=== PATIENT | male | born 1955 | race Caucasian/White ===

== ENCOUNTER 2022-02-11 15:36 | Inpatient (IN) ==
[2022-02-11] MEDS ORDERED: ONDANSETRON INJ 2 MG/ML 2 ML VIAL IV STA (16:28)
[2022-02-11] MEDS ORDERED: KETOROLAC TROMETHAMINE 15 MG/ML VIAL IV STA (16:28)
[2022-02-11] MEDS ORDERED: HYDROmorphone INJ 1 MG/ML SYRINGE IV STA (16:28)
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
[2022-02-11 16:58] LABS: Appearance Urine Clear (Clear); Bilirubin Urine Negative (Negative); Blood Urine Negative (Negative); Color Urine Yellow; Glucose Urine UA 2+ (Negative); Ketones Urine Negative (Negative); Leukocyte Esterase Urine Negative (Negative); Nitrite Urine Negative (Negative); Protein Urine Negative (Negative); Specific Gravity Urine 1.013 (1.000-1.030); Urobilinogen Urine Negative (Negative); pH Urine 7.5 (4.5-7.5)
[2022-02-11 16:59] LABS: Basophils # (auto) 0.05 K/uL (0-0.2); Basophils % (auto) 0.4 %; Eosinophils # (auto) 0.03 K/uL (0-0.50); Eosinophils % (auto) 0.2 %; Hematocrit (blood only) 41.6 % (40.1-51.0); Hemoglobin 14.2 g/dl (14.0-18.0); Immature Granulocytes # (auto) 0.11 K/uL (0.00-0.02); Immature Granulocytes % (auto) 0.8 %; Lymphocytes # (auto) 1.91 K/uL (1.2-3.4); Lymphocytes % (auto) 13.6 %; Mean Corpuscular Hemoglobin 31.1 pg (25.0-34.0); Mean Corpuscular Hgb Conc 34.1 g/dL (32.0-36.0); Mean Corpuscular Volume 91.2 fL (80.0-100.0); Mean Platelet Volume 9.1 fL (9.4-12.4); Monocytes % (auto) 5.7 %; Neutrophils # (auto) 11.18 K/uL (1.4-6.5); Neutrophils % (auto) 79.3 %; Platelet Count 617 K/uL (130-400); RDW Coefficient of Variation 13.9 % (11.5-14.5); RDW Standard Deviation 46.7 fL (36.4-46.3); Red Blood Count 4.56 M/uL (4.63-6.08); White Blood Count 14.08 K/ul (4.8-10.8)
[2022-02-11 17:10] LABS: INR 0.9 (0.9-1.1); Partial Thromboplastin Time 27.8 Seconds (21.0-31.0); Prothrombin Time 10.1 Seconds (9.0-12.0)
[2022-02-11 17:25] LABS: Alanine Aminotransferase 49 U/L (7-52); Albumin Globulin Ratio 1.6 (0.9-2); Albumin Level 4.1 gm/dl (3.4-5.0); Alkaline Phosphatase 41 U/L (34-104); Anion Gap 7 (3-11); Aspartate Aminotransferase 21 U/L (13-39); BUN Creatinine Ratio 23.5 (10-20); Bilirubin,Total 0.4 mg/dl (0.2-1.0); Blood Urea Nitrogen 20 mg/dl (6-23); Calcium 8.8 mg/dl (8.5-10.1); Carbon Dioxide 29 mmol/L (21-32); Chloride 99 mmol/L (98-107); Est GFR (African American) 103.8 ml/min; Est GFR (Non-African American) 89.5 ml/min; Globulin 2.6 gm/dl (2.5-4.0); Glucose 215 mg/dl (70-99(Fasting)); Potassium 4.5 mmol/L (3.5-5.1); Sodium 135 mmol/L (136-145); Total Protein 6.7 gm/dl (6.0-8.3)
[2022-02-11] MEDS ORDERED: HYDROmorphone INJ 0.5 MG/0.5 ML SYR IV STA (17:26)
[2022-02-11] MEDS ORDERED: ACETAMINOPHEN 1,000 MG/100 ML VIAL IV PRN (21:06)
[2022-02-11] MEDS ORDERED: METOCLOPRAMIDE HCL INJ 5 MG/ML 2 ML VIAL IV PRN (21:06)
[2022-02-11] MEDS ORDERED: NALOXONE HCL 0.4 MG/1 ML VIAL/CARP IV PRN (21:06)
[2022-02-11] MEDS ORDERED: ACETAMINOPHEN 500 MG TAB PO PRN (21:06)
[2022-02-11] MEDS ORDERED: LORazepam 0.5 MG in SYRINGE 0.25 ML IV PRN (21:06)
[2022-02-11] MEDS ORDERED: oxyCODONE HCL IR 5 MG TAB (IMMEDIATE RELEASE) PO PRN (21:06)
[2022-02-11] MEDS ORDERED: ONDANSETRON 4 MG OD TAB PO PRN (21:06)
[2022-02-11] MEDS ORDERED: PHARMACY GLYCEMIC MGMT CONSULT PRN (21:06)
[2022-02-11] MEDS ORDERED: LORazepam 0.5 MG TAB PO PRN (21:06)
[2022-02-11] MEDS ORDERED: DOCUSATE SODIUM/SENNA 50/8.6MG TAB PO SCH (21:06)
[2022-02-11] MEDS ORDERED: MAGNESIUM HYDROXIDE SUSP 30 ML UDC PO PRN (21:06)
[2022-02-11] MEDS ORDERED: HYDROmorphone INJ 1 MG/ML SYRINGE IV PRN (21:06)
[2022-02-11] MEDS ORDERED: ONDANSETRON INJ 2 MG/ML 2 ML VIAL IV PRN (21:06)
[2022-02-11] MEDS ORDERED: PROMETHAZINE HCL 12.5 MG in SODIUM CHLORIDE 0.9% 50 ML IV PRN (21:06)
[2022-02-11] MEDS: SODIUM CHLORIDE 0.9% 1000ML 1,000 ML IV SCH (21:18)
[2022-02-11] MEDS: HYDROmorphone INJ 0.5 MG/0.5 ML SYR IV PRN (21:20)
[2022-02-11] MEDS: ATORVASTATIN 40 MG TAB PO SCH (22:31)
[2022-02-11] MEDS: GABAPENTIN 300 MG CAP PO SCH (22:32)
[2022-02-12] MEDS: HYDROmorphone INJ 0.5 MG/0.5 ML SYR IV PRN (00:03)
[2022-02-12] MEDS: INSULIN ASPART PER UNIT SC SCH ×6 (00:10→20:54)
[2022-02-12] MEDS ORDERED: ACETAMINOPHEN 1,000 MG/100 ML VIAL IV SCH (02:00)
[2022-02-12] MEDS ORDERED: ALBUTEROL HFA 8 GM INHALER INH PRN (02:13)
[2022-02-12] MEDS ORDERED: LORazepam 0.5 MG in SYRINGE 0.25 ML IV PRN ×2 (02:13→17:41)
[2022-02-12] MEDS: SODIUM CHLORIDE 0.9% 1000ML 1,000 ML IV SCH ×2 (02:21→17:41)
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
[2022-02-12] MEDS ORDERED: LORazepam 1 MG in SYRINGE 0.5 ML IV STA (03:11)
[2022-02-12] MEDS: MELATONIN 3 MG TAB PO PRN ×2 (03:23→23:02)
[2022-02-12] MEDS ORDERED: ceFAZolin 2000MG 2,000 MG/15 ML SYR IV SCH (06:00)
--- NOTE | 2022-02-12 06:09 | Billing Data ---
Date of Service February 12, 2022 Coding Level of Care Code 49526 Inpt Consult Level 3
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
[2022-02-12] MEDS: FLUTICASONE/VILANTEROL 200/25MCG 14 PUFFS/INHALER INH SCH (08:02)
[2022-02-12] MEDS: GABAPENTIN 300 MG CAP PO SCH ×3 (08:06→20:08)
[2022-02-12] MEDS: amLODIPine BESYLATE 5 MG TAB PO SCH (08:07)
[2022-02-12] MEDS ORDERED: LOSARTAN POTASSIUM 50 MG TAB PO SCH (09:00)
--- NOTE | 2022-02-12 11:54 | Communication Note ---
Date of Service: February 12, 2022 Seen and evaluated patient this morning. He was seen by overnight resident for medical management consult. Reviewed consult, only change made is to hold Losartan in anticipation of surgery. Otherwise, no changes made to plan. Will continue to follow after surgery.
--- NOTE | 2022-02-12 12:23 | History & Physical Bridge Note ---
Date of Service February 12, 2022 History & Physical Bridge Note I have examined the patient, reviewed the History & Physical and in the interval since the performance of the History & Physical I have noted the following changes of clinical significance: Patient continues to decline. He is unresponsive to narcotic medications for pain control and with his strength deficit progressing I am recommending emergent decompression and fusion
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
[2022-02-12] MEDS ORDERED: HYDROmorphone INJ 1 MG/ML SYRINGE IV PRN (14:08)
[2022-02-12] MEDS ORDERED: ATROPINE SULFATE 0.1 MG/ML 10ML SYR IV PRN (14:08)
[2022-02-12] MEDS ORDERED: ePHEDrine sulfate 50 MG/ML AMP IV PRN (14:08)
[2022-02-12] MEDS ORDERED: ONDANSETRON INJ 2 MG/ML 2 ML VIAL IV PRN ×2 (14:08→17:41)
--- NOTE | 2022-02-12 14:15 | Pharmacy Report ---
Pharmacy Glycemic Short Note 2 - Date of Service February 12, 2022 - Glycemic Short BSG Results (Last 24 hours): 02/11/22 02/12/22 02/12/22 16:40 00:01 05:54 Glucose 215 H POC Glucose 125 H 112 H 02/12/22 02/12/22 12:04 13:04 Glucose POC Glucose 99 102 H OUTPATIENT ANTIDIABETIC REGIMEN: * metformin 500 mg BID * prednisone taper as an outpatient ASSESSMENT: * Mr Nowak is a 66 y/o M with a PMH of T2DM on oral medication who presents with lumbar radiculopathy. * Patient currently NPO and BSGs are well controlled. * Patient scheduled for surgery today. Post Op plan to be determined based upon steroids given. PLAN FOR INPATIENT GLYCEMIC CONTROL: * Hold outpatient oral diabetes medications * Basal insulin * TBD * Bolus insulin * NovoLog per scale ACHS or Q6hrs while NPO * Goal Range: Low 110 mg/dL - High 140 mg/dL * Correction Factor: 25 mg/dL/unit * Nutritional / Prandial insulin per carb ratio of 1 unit per 8 grams CHO consumed
[2022-02-12] MEDS ORDERED: ceFAZolin 330 MG/ML 1 GM VIAL ONE (14:27)
[2022-02-12] MEDS ORDERED: BUPIVACAINE/EPINEPHRINE 0.25% 1:200,000 30 ML VIAL ONE (14:27)
[2022-02-12] MEDS ORDERED: ONDANSETRON INJ 2 MG/ML 2 ML VIAL ONE ×2 (14:32→14:58)
[2022-02-12] MEDS ORDERED: DEXAMETHASONE SOD INJ 4 MG/ML VIAL ONE (14:32)
[2022-02-12] MEDS ORDERED: PROPOFOL IV EMULSION 10 MG/ML 20 ML VIAL IV ONE (14:32)
[2022-02-12] MEDS ORDERED: NEOSTIGMINE METHYLSULFATE 1 MG/ML 10ML VIAL ONE (14:32)
[2022-02-12] MEDS ORDERED: GLYCOPYRROLATE 0.2 MG/ML VIAL ONE ×2 (14:32→14:58)
[2022-02-12] MEDS ORDERED: HYDROmorphone INJ 2 MG/ML SYR/VIAL ONE (14:33)
[2022-02-12] MEDS ORDERED: MIDAZOLAM HCL 1 MG/ML 2ML VIAL ONE (14:33)
[2022-02-12] MEDS ORDERED: PHENYLEPHRINE 100MCG/ML 5ML SYR ONE (14:59)
[2022-02-12] MEDS ORDERED: LARYING-O-JET KIT (LTA) ONE (14:59)
[2022-02-12] MEDS ORDERED: ePHEDrine sulfate 50 MG/ML AMP ONE (14:59)
[2022-02-12] MEDS ORDERED: ROCURONIUM BROMIDE 10 MG/ML 5 ML VIAL IV ONE (14:59)
[2022-02-12] MEDS ORDERED: LIDOCAINE 2% 20 MG/ML 5 ML SYR IV ONE (14:59)
[2022-02-12] MEDS ORDERED: FLOSEAL HEMOSTATIC MATRIX 10ML TOP ONE (15:04)
--- NOTE | 2022-02-12 16:12 | Electrocardiogram Report ---
Test Reason : Blood Pressure : / mmHG Vent. Rate : 062 BPM Atrial Rate : 062 BPM P-R Int : 188 ms QRS Dur : 104 ms QT Int : 394 ms P-R-T Axes : 043 -39 005 degrees QTc Int : 399 ms Normal sinus rhythm Left axis deviation Minimal voltage criteria for LVH, may be normal variant Abnormal ECG When compared with ECG of 05-MAR-2013 11:11, No significant change was found Confirmed by Gage Garza ([id number]) on 02/12/2022 4:12:11 PM Referred By: REFERRED SELF Confirmed By:Gage Garza
--- NOTE | 2022-02-12 16:25 | Operative Report ---
Post Operative Report Pre & Post Diagnosis Operation Date: 02/12/22 10:20 Pre-Op Diagnosis: (1) Lumbar radiculopathy: Post-Op Diagnosis: (1) Lumbar radiculopathy: I identified the patient and participated in the time-out.: Yes Procedure Operation Date: 02/12/22 10:20 Actual Procedures Impression bilateral medial facetectomies and foraminotomies L2-L3 L3-L4. #2 posterior spinal fusion L2-L3 L3-L4. #3 placement posterior instrumentation L2- L3 L3-L4 per #4 interbody fusion L3-L4. #5 placement of Spira 13 x 26 mm cage L3-L4. #6 placement locally harvested morselized autograft in the posterior gutters. #7 placement of I factor combined with V toss in interbody space and posterior lateral gutters. Surgeon Deo Johnson, Extrusion Die Template Maker Aaliyah Umana Estimated Blood Loss 50 Findings Consistent with Post-Op Diagnosis Specimens None Indications This is a 58-year-old male who presents with marked decline in status with considerable L3 radiculopathy and motor deficit unresponsive to nonoperative care and subsequently here for emergent decompression and fusion Description of Procedure Patient was met with identified informed consent obtained. Patient was then taken to the operative suite underwent intubation placed in the prone position on the Martin table on top of the Bola frame. All bony prominences well- padded eyes inspected to ensure no external pressure placed upon them. This point the lumbar spine was prepped and draped in normal sterile fashion. Sharp dissection with the assistance of Bovie cautery was performed down to and exposing the lamina and transverse processes of L2-L3-L4 bilaterally. From a caudal to cephalad fashion complete laminectomy of L3 and L2 was performed including bilateral medial facetectomies and foraminotomies addressing significant spinal stenosis. I did note massive disc herniation L3-L4 on the right exiting out through the foramen. I performed a complete facetectomy in order to address the disc affecting the exiting root. After complete removal of all the fragments pedicle screws were then placed in L2 L3-4 bilaterally with assistance of fluoroscopy and the properly sized rosanne placed. By way of a transforaminal approach on the right a complete discectomy of L3-L4 was performed endplates curetted to subcortical bleeding bone and a 13 x 26 mm spiral cage filled I factor tapped in position. The rods were then compressed locked into final position bilaterally. The transverse processes of L2-L3-L4 burred to subcortically bone. I factor combined with V toss and locally harvested morselized autograft was placed in the posterior gutters. 15 round [place] drain inserted. The incision was then closed with 1 Vicryl the fascia 2-0 Vicryl subcutaneously and 4 Monocryl for final skin closure. Steri-Strip sterile dressings placed. Patient waken taken PACU stable condition. Please note spinal cord monitoring visualized at the procedure no changes noted. Lastly Aaliyah Umana was present for the entire surgery and while the patient positioning complex portions of the surgery and final skin closure. I attest to the content of the Intraoperative Record and any orders documented therein. Any exceptions are noted below.
[2022-02-12] MEDS: fentaNYL citrate 100 MCG/2 ML VIAL IV PRN ×4 (16:50→17:05)
--- NOTE | 2022-02-12 16:52 | Fluoroscopy Report ---
FL lumbar spine 2-3V CLINICAL HISTORY: L2-L4 decompression and fusion COMPARISON STUDY: None. FLUOROSCOPY TIME: 25 seconds. FINDINGS: 2 fluoroscopic spot images of the lower lumbar spine demonstrate posterior decompression an d fusion from L2 through L4 with pedicle screws and rods. There is an L3-L4 disc spacer. The hardware appears intact. IMPRESSION: Fluoroscopic assistance provided for L2-L4 posterior decompression and fusion. ACT 112: Negative or not required by law. Electronically signed by: Juanito Shafer M.D. 02/12/2022 4:50 PM
--- NOTE | 2022-02-12 17:10 | Anesthesiology Progress Note ---
Date of Service February 12, 2022 Anesthesia Post Procedure Vital Signs Vital Signs: Temp Pulse Pulse Resp BP BP Pulse Ox 02/12/22 17:00 70 12 138/72 96 02/12/22 16:50 73 18 140/80 97 02/12/22 16:40 66 14 132/78 98 02/12/22 16:31 36.2 C L 80 18 129/70 94 02/12/22 12:55 36.7 C 60 18 146/88 H 95 02/12/22 07:36 36.8 C 60 14 162/90 H 98 02/12/22 05:52 36.5 C 58 L 17 147/88 H 94 02/12/22 02:05 36.7 C 67 18 164/83 H 96 02/12/22 00:11 63 18 152/89 H 96 02/11/22 21:13 73 18 155/88 H 94 02/11/22 18:00 74 18 166/99 H 94 O2 Del Method O2 Flow Rate 02/12/22 17:00 Oxymask 3 02/12/22 16:50 Oxymask 4 02/12/22 16:40 Oxymask 6 02/12/22 16:31 Oxymask 10 02/12/22 12:55 Room Air 02/12/22 07:36 Room Air 02/12/22 05:52 Room Air 02/12/22 02:05 Room Air 02/12/22 00:11 Room Air 02/11/22 21:13 Room Air 02/11/22 18:00 Room Air Pain Intensity Back: Pain Intensity: 3 Right Hip: Pain Intensity: 3 Transfer of Care Handoff Completed per policy Notes Mental Status: alert / awake / arousable Patient Amnestic to Procedure: Yes Nausea / Vomiting: adequately controlled Pain: adequately controlled Airway Patency, RR, SpO2: stable & adequate BP & HR: stable & adequate Hydration State: stable & adequate Anesthetic Complications: no major complications apparent and Pt Satisfied with anesthetic care
[2022-02-12] MEDS ORDERED: diphenhydrAMINE Capsule 25 MG CAP PO PRN (17:41)
[2022-02-12] MEDS ORDERED: FAMOTIDINE 20 MG TAB PO PRN (17:41)
[2022-02-12] MEDS ORDERED: ONDANSETRON 4 MG OD TAB PO PRN (17:41)
[2022-02-12] MEDS ORDERED: hydrOXYzine HCl 25 MG TAB PO PRN (17:41)
[2022-02-12] MEDS ORDERED: HYDROmorphone INJ 0.5 MG/0.5 ML SYR IV PRN (17:41)
[2022-02-12] MEDS ORDERED: bisacodyL 10 MG SUPP PR PRN (17:41)
[2022-02-12] MEDS ORDERED: MAGNESIUM HYDROXIDE SUSP 30 ML UDC PO PRN (17:41)
[2022-02-12] MEDS ORDERED: PHARMACY GLYCEMIC MGMT CONSULT PRN (17:41)
[2022-02-12] MEDS ORDERED: ALUMINUM/MAGNESIUM SUSP 30 ML UDC PO PRN (17:41)
[2022-02-12] MEDS ORDERED: ACETAMINOPHEN 500 MG TAB PO PRN (17:41)
[2022-02-12] MEDS ORDERED: PROMETHAZINE HCL 12.5 MG in SODIUM CHLORIDE 0.9% 50 ML IV PRN (17:41)
[2022-02-12] MEDS ORDERED: NALOXONE HCL 0.4 MG/1 ML VIAL/CARP IV PRN (17:41)
[2022-02-12] MEDS ORDERED: METOCLOPRAMIDE HCL INJ 5 MG/ML 2 ML VIAL IV PRN (17:41)
[2022-02-12] MEDS ORDERED: SOD PHOSPHATE/SOD BIPHOSPHATE ENEMA 132 ML BTL PR PRN (17:41)
[2022-02-12] MEDS: HYDROmorphone INJ 1 MG/ML SYRINGE IV PRN (18:14)
[2022-02-12] MEDS ORDERED: Nursing to Pharmacy Communication SCH (18:15)
[2022-02-12] MEDS ORDERED: LANTUS PER UNIT CHARGE SQ ONE (19:15)
[2022-02-12] MEDS: DOCUSATE SODIUM/SENNA 50/8.6MG TAB PO SCH (20:08)
[2022-02-12] MEDS: ATORVASTATIN 40 MG TAB PO SCH (20:08)
[2022-02-12] MEDS: LORazepam 0.5 MG TAB PO PRN (20:25)
[2022-02-12] MEDS: ceFAZolin 2000MG 2,000 MG/15 ML SYR IV SCH (21:32)
[2022-02-13] MEDS: INSULIN ASPART PER UNIT SC SCH ×6 (00:01→21:10)
[2022-02-13] MEDS: HYDROmorphone INJ 1 MG/ML SYRINGE IV PRN ×5 (01:47→20:22)
[2022-02-13] MEDS: SODIUM CHLORIDE 0.9% 1000ML 1,000 ML IV SCH (03:32)
[2022-02-13] MEDS: POLYETHYLENE (MIRALAX) 17 GM PACK PO SCH ×5 (05:57→23:29)
[2022-02-13] MEDS: ceFAZolin 2000MG 2,000 MG/15 ML SYR IV SCH (06:01)
[2022-02-13] MEDS ORDERED: GLUCOSE 10 TAB/TUBE PO PRN (07:15)
[2022-02-13] MEDS ORDERED: DEXTROSE 50% 50 ML SYRINGE IV PRN (07:15)
[2022-02-13] MEDS ORDERED: CARBOHYDRATES FOR HYPOGLYCEMIA PO PRN (07:15)
[2022-02-13] MEDS ORDERED: GLUCAGON FOR INJ 1 MG VIAL IM PRN (07:15)
[2022-02-13] MEDS ORDERED: GLUCOSE 40% GEL 15 GM TUBE PO PRN (07:15)
[2022-02-13 07:58] LABS: Hematocrit (blood only) 38.4 % (40.1-51.0); Hemoglobin 13.3 g/dl (14.0-18.0); Mean Corpuscular Hemoglobin 31.1 pg (25.0-34.0); Mean Corpuscular Hgb Conc 34.6 g/dL (32.0-36.0); Mean Corpuscular Volume 89.9 fL (80.0-100.0); Mean Platelet Volume 9.2 fL (9.4-12.4); Platelet Count 513 K/uL (130-400); RDW Coefficient of Variation 13.7 % (11.5-14.5); RDW Standard Deviation 44.9 fL (36.4-46.3); Red Blood Count 4.27 M/uL (4.63-6.08); White Blood Count 27.11 K/ul (4.8-10.8)
[2022-02-13 08:16] LABS: BUN Creatinine Ratio 20.7 (10-20); Calcium 8.8 mg/dl (8.5-10.1); Creatinine Clr Calc Pharmacy 68.2 ml/min; Est GFR (African American) 102.8 ml/min; Est GFR (Non-African American) 88.7 ml/min; Potassium 4.2 mmol/L (3.5-5.1)
[2022-02-13 08:19] LABS: Basophils # (auto) 0.03 K/uL (0-0.2); Basophils % (auto) 0.1 %; Immature Granulocytes # (auto) 0.13 K/uL (0.00-0.02); Immature Granulocytes % (auto) 0.5 %; Lymphocytes # (auto) 2.25 K/uL (1.2-3.4); Lymphocytes % (auto) 8.3 %; Monocytes # (auto) 1.92 K/uL (0.24-0.82); Monocytes % (auto) 7.1 %; Neutrophils # (auto) 22.78 K/uL (1.4-6.5)
[2022-02-13 08:20] LABS: Estimated Average Glucose 197 mg/dl; Hemoglobin A1C 8.5 % (4.5-5.6)
[2022-02-13] MEDS: LANTUS PER UNIT CHARGE SQ SCH (09:12)
--- NOTE | 2022-02-13 09:12 | Hospitalist Progress Note ---
Date of Service February 13, 2022 Assessment & Plan (1) Lumbar radiculopathy: Plan: 66yo male with a history of HTN, HLD, DM2, and asplenia presents with a five- week history of low back pain and radicular leg pain. Patient was seen by [facility] a few days ago, and surgery was recommended. Medicine was consulted for perioperative medical management. Lumbar radiculopathy, spinal stenosis - s/p lumbar decompression 02/12 - Pain management: home gabapentin scheduled, 2nd line - oxycodone, 3rd line - dilaudid Of note, patient dilaudid this earlier without adverse effect despite it being listed as an allergy - Suspect acetaminophen not true allergy but reacted d/t it being given concurrently with hydrocodone - Antiemetic regimen: 1st line - zofran; 2nd line - promethazine, 3rd line - metoclopramide - PT/OT eval - Incentive spirometer use q1h wa for atelectasis/pna prevention - d/c planning (2) Lumbar spinal stenosis: Plan: As above (3) Controlled diabetes mellitus type II without complication: Plan: - BSG ac and hs - SSI w/ hypoglycemic protocol in place - hold home regimen (although may resume upon discharge) (4) Benign essential hypertension: Plan: - Takes Losartan and Amlodipine - Losartan held perioperatively, can resume pod #2 - Continue Amlodipine - BP acceptable (5) Mild intermittent asthma in adult without complication: Plan: - Stable (6) Hypercholesterolemia: Plan: - continue atorvastatin Plan Patient is medically and hemodynamically stable post op day #1. No additional recommendations at this time. Believe his leukocytosis is steroid driven. Encourage ambulation. Instructed to take OxyIR prior to working with PT. Thank you for letting us participate in the care of your patient, will sign off but co ntpreetiue to perform daily chart checks while pt remains in house and follow peripherally. Plan to be d/w Dr. Arvizu. Admission and Anticipated Discharge Date Admission Date: February 11, 2022 Subjective Patient seen on daily rounds this morning. Resting comfortably in bedside chair, reports some incisional soreness. No cp or dyspnea. Tolerating diet. Had dasilva removed this AM. No BM since surgery but passing flatus. No numbness/tingling in LE or groin. No leg pain. Review of Systems Review of Systems: All systems reviewed and are unremarkable except as noted in HPI and below. +back soreness from incision Denies fever, chills, fatigue, headache, nasal congestion, sore throat, cough, chest pain, shortness of breath, palpitations, orthopnea, PND, abdominal pain, n/v/d, constipation, dysuria, hematuria, frequency, back pain, joint pain or swelling, easy bruising or bleeding, skin lesions or rashes. Physical Exam Physical Exam: GENERAL: 66 yo Well-developed, well-nourished WM. NAD. LUNGS: Clear to auscultation bilaterally. No W/R/R. CARDIOVASCULAR: Regular rate and rhythm. No M/G/R. No JVD. ABDOMEN: Soft, non-tender and non-distended. BS normoactive x 4 quad. EXTREMITIES: No edema. Non-tender. Peripheral pulses +2/4. NEUROLOGIC: A&O x3. Nonfocal PSYCHIATRIC: Cooperative. Appropriate mood and affect. SKIN: Warm, dry, intact. No rashes or lesions. Lower back incision dressed. Dressing dry. Results & Data Results & Data ([facility]) Vital Signs (Past 12 Hours) Vital Signs Temp Pulse Resp BP Pulse Ox O2 Del Method 02/13/22 07:21 36.8 C 89 16 144/93 H 95 Room Air 02/13/22 03:22 36.6 C 75 18 146/88 H 95 Room Air 02/13/22 00:08 36.8 C 76 18 139/82 96 Room Air Laboratory Results 02/13/22 07:39 02/13/22 07:39 PG Care Time/CCT Total # of Minutes Spent Total Time Spent with Patient: Total time spent is greater than 50% in coordination of care (as documented) at patient's floor/unit and/or counseling patient: Coding Level of Care Code 36116 Subseq Hosp Care Lvl 2 Diagnoses Lumbar radiculopathy M54.16 Lumbar spinal stenosis M48.061 Controlled diabetes mellitus type II without complication E11.9 Benign essential hypertension I10 Mild intermittent asthma in adult without complication J45.20 Hypercholesterolemia E78.00
--- NOTE | 2022-02-13 09:13 | Orthopedic Progress Note ---
Date of Service February 13, 2022 Assessment & Plan (1) Lumbar radiculopathy: Plan: At this time we will continue physical therapy monitor his SPRING output hopefully discharge home next day or so. Admission and Anticipated Discharge Date Admission Date: February 11, 2022 Subjective Patient's back pain is controlled leg symptoms markedly improved Physical Exam Physical Exam: On exam patient is in a chair at the bedside. Is good strength testing. Results & Data ([facility]) Vital Signs (Past 12 Hours) Vital Signs Temp Pulse Resp BP Pulse Ox O2 Del Method 02/13/22 07:21 36.8 C 89 16 144/93 H 95 Room Air 02/13/22 03:22 36.6 C 75 18 146/88 H 95 Room Air 02/13/22 00:08 36.8 C 76 18 139/82 96 Room Air
[2022-02-13] MEDS: dexAMETHasone 6 MG in SYRINGE 0 ML IV SCH (09:15)
[2022-02-13] MEDS: FLUTICASONE/VILANTEROL 200/25MCG 14 PUFFS/INHALER INH SCH (09:15)
[2022-02-13] MEDS: GABAPENTIN 300 MG CAP PO SCH ×3 (09:16→20:26)
[2022-02-13] MEDS: amLODIPine BESYLATE 5 MG TAB PO SCH (09:17)
--- NOTE | 2022-02-13 10:10 | Pharmacy Report ---
Pharmacy Glycemic Short Note 2 - Date of Service February 13, 2022 - Glycemic Short BSG Results (Last 24 hours): 02/12/22 02/12/22 02/12/22 12:04 13:04 16:34 Glucose POC Glucose 99 102 H 125 H 02/12/22 02/12/22 02/12/22 18:05 20:36 23:55 Glucose POC Glucose 184 H 258 H 148 H 02/13/22 02/13/22 02/13/22 04:08 07:39 08:06 Glucose 165 H POC Glucose 125 H 182 H OUTPATIENT ANTIDIABETIC REGIMEN: * Metformin 500 mg PO BID * HbA1c = 8.5% (02/13/22) ASSESSMENT: 02/13: * Gordy received 33 units of insulin postoperatively yesterday (20 units basal + 13 units bolus). BSGs were acceptable: [id number] mg/dL. * Fasting BSG above goal at 182 mg/dL this AM. This is likely steroid driven given IV dexamethasone received intraoperatively yesterday. Patient is ordered Dexamethasone 6 mg IV daily x 3 days starting this morning. Will start basal at 0.2 units/kg to cover steroids. * No changes to Novolog. 02/12: * Mr Nowak is a 66 y/o M with a PMH of T2DM on oral medication who presents with lumbar radiculopathy. * Patient currently NPO and BSGs are well controlled. * Patient scheduled for surgery today. Post Op plan to be determined based upon steroids given. PLAN FOR INPATIENT GLYCEMIC CONTROL: * Hold outpatient oral diabetes medications * Basal insulin * Lantus 15 units SC daily x 3 days (hold if dexamethasone held/discontinued) * Bolus insulin * NovoLog per scale ACHS or Q6hrs while NPO * Goal Range: Low 110 mg/dL - High 140 mg/dL * Correction Factor: 25 mg/dL/unit * Nutritional / Prandial insulin per carb ratio of 1 unit per 8 grams CHO consumed
[2022-02-13] MEDS: oxyCODONE HCL IR 5 MG TAB (IMMEDIATE RELEASE) PO PRN ×2 (12:35→22:53)
[2022-02-13] MEDS: ATORVASTATIN 40 MG TAB PO SCH (20:25)
[2022-02-13] MEDS: DOCUSATE SODIUM/SENNA 50/8.6MG TAB PO SCH (20:26)
[2022-02-13] MEDS: MELATONIN 3 MG TAB PO PRN (22:53)
[2022-02-13] MEDS: LORazepam 0.5 MG TAB PO PRN (23:14)
[2022-02-14] MEDS: oxyCODONE HCL IR 5 MG TAB (IMMEDIATE RELEASE) PO PRN ×3 (03:33→22:32)
[2022-02-14] MEDS: POLYETHYLENE (MIRALAX) 17 GM PACK PO SCH ×3 (05:24→18:13)
[2022-02-14] MEDS: INSULIN ASPART PER UNIT SC SCH ×4 (08:23→21:25)
[2022-02-14] MEDS: LANTUS PER UNIT CHARGE SQ SCH (08:24)
[2022-02-14] MEDS: dexAMETHasone 6 MG in SYRINGE 0 ML IV SCH (08:29)
--- NOTE | 2022-02-14 08:29 | Orthopedic Progress Note ---
Date of Service February 14, 2022 Assessment & Plan (1) Lumbar radiculopathy: Plan: Patient is postoperative day 2 lumbar decompression instrumented fusion. We will add some steroids today to help improve his pain. Continue with aggressive bowel regimen. DVT prophylaxis is in the form of teds and SCDs. Hopefully discharge home tomorrow. Admission and Anticipated Discharge Date Admission Date: February 11, 2022 Idalia Mullins is postoperative day 2 lumbar decompression and fusion. He has had a rough night with lower back pain and right knee pain. He is passing flatus. SPRING drain output last shift was 30 cc. Yesterday in physical therapy ambling roughly 40 feet. Review of Systems Review of Systems: All systems reviewed & are unremarkable except as noted in HPI & below Physical Exam Physical Exam: Patient is lying in bed in no acute distress Alert and oriented x3 Strength is intact bilateral lower extremities calves are soft and nontender bilaterally Results & Data ([facility]) Vital Signs (Past 12 Hours) Vital Signs Temp Pulse Resp BP Pulse Ox O2 Del Method 02/14/22 07:32 36.7 C 74 18 127/81 92 Room Air 02/13/22 23:28 36.6 C 74 18 136/82 99 Room Air
[2022-02-14] MEDS: amLODIPine BESYLATE 5 MG TAB PO SCH (08:30)
[2022-02-14] MEDS: FLUTICASONE/VILANTEROL 200/25MCG 14 PUFFS/INHALER INH SCH (08:30)
[2022-02-14] MEDS: GABAPENTIN 300 MG CAP PO SCH ×3 (08:30→20:19)
[2022-02-14] MEDS: LOSARTAN POTASSIUM 50 MG TAB PO SCH (08:31)
[2022-02-14] MEDS: HYDROmorphone INJ 1 MG/ML SYRINGE IV PRN ×2 (09:15→13:18)
[2022-02-14 11:39] LABS: Hematocrit (blood only) 36.2 % (40.1-51.0); Hemoglobin 12.2 g/dl (14.0-18.0); Mean Corpuscular Hemoglobin 30.9 pg (25.0-34.0); Mean Corpuscular Hgb Conc 33.7 g/dL (32.0-36.0); Mean Corpuscular Volume 91.6 fL (80.0-100.0); Mean Platelet Volume 9.4 fL (9.4-12.4); Platelet Count 441 K/uL (130-400); RDW Coefficient of Variation 13.9 % (11.5-14.5); RDW Standard Deviation 46.8 fL (36.4-46.3); Red Blood Count 3.95 M/uL (4.63-6.08); White Blood Count 26.29 K/ul (4.8-10.8)
[2022-02-14 12:28] LABS: BUN Creatinine Ratio 23.2 (10-20); Calcium 8.8 mg/dl (8.5-10.1); Creatinine Clr Calc Pharmacy 62.5 ml/min; Est GFR (African American) 94.9 ml/min; Est GFR (Non-African American) 81.9 ml/min; Potassium 4.3 mmol/L (3.5-5.1)
[2022-02-14] MEDS: DOCUSATE SODIUM/SENNA 50/8.6MG TAB PO SCH (20:19)
[2022-02-14] MEDS: ATORVASTATIN 40 MG TAB PO SCH (20:19)
[2022-02-14] MEDS: LORazepam 0.5 MG TAB PO PRN (21:24)
[2022-02-14] MEDS: MELATONIN 3 MG TAB PO PRN (21:24)
[2022-02-15] MEDS: INSULIN ASPART PER UNIT SC SCH ×4 (08:31→21:08)
[2022-02-15] MEDS: LANTUS PER UNIT CHARGE SQ SCH (08:32)
[2022-02-15] MEDS ORDERED: NovoLIN-N (NPH) PER UNIT CHARGE SQ ONE (09:00)
[2022-02-15] MEDS: dexAMETHasone 6 MG in SYRINGE 0 ML IV SCH ×2 (09:17→16:26)
[2022-02-15] MEDS: FLUTICASONE/VILANTEROL 200/25MCG 14 PUFFS/INHALER INH SCH (09:17)
[2022-02-15] MEDS: GABAPENTIN 300 MG CAP PO SCH ×4 (09:18→21:04)
[2022-02-15] MEDS: amLODIPine BESYLATE 5 MG TAB PO SCH (09:18)
[2022-02-15] MEDS: LOSARTAN POTASSIUM 50 MG TAB PO SCH (09:18)
[2022-02-15] MEDS: HYDROmorphone INJ 1 MG/ML SYRINGE IV PRN (09:20)
[2022-02-15 09:51] LABS: Basophils # (auto) 0.05 K/uL (0-0.2); Basophils % (auto) 0.2 %; Eosinophils # (auto) 0.01 K/uL (0-0.50); Hematocrit (blood only) 36.4 % (40.1-51.0); Hemoglobin 12.4 g/dl (14.0-18.0); Immature Granulocytes # (auto) 0.14 K/uL (0.00-0.02); Immature Granulocytes % (auto) 0.6 %; Lymphocytes # (auto) 4.52 K/uL (1.2-3.4); Lymphocytes % (auto) 19.6 %; Mean Corpuscular Hemoglobin 31.2 pg (25.0-34.0); Mean Corpuscular Hgb Conc 34.1 g/dL (32.0-36.0); Mean Corpuscular Volume 91.5 fL (80.0-100.0); Mean Platelet Volume 9.7 fL (9.4-12.4); Monocytes % (auto) 4.8 %; Neutrophils # (auto) 17.19 K/uL (1.4-6.5); Neutrophils % (auto) 74.8 %; Platelet Count 428 K/uL (130-400); RDW Coefficient of Variation 14.1 % (11.5-14.5); RDW Standard Deviation 47.3 fL (36.4-46.3); Red Blood Count 3.98 M/uL (4.63-6.08); White Blood Count 23.01 K/ul (4.8-10.8)
--- NOTE | 2022-02-15 10:11 | Orthopedic Progress Note ---
Date of Service February 15, 2022 Assessment & Plan (1) Lumbar radiculopathy: Plan: Dr. Johnson has also evaluated patient. We will add Neurontin, change Decadron to q8hr and get lumbar xrays to evaluate hardware. COntinue bowel regimen. DVT prophylaxis is in the form of TEDS/SCDs, Admission and Anticipated Discharge Date Admission Date: February 11, 2022 Subjective Pt is POD 3 s/p lumbar decompression /fusion L2-4. He is having significant back spasms and RLE pain to the knee. SPRING output is30 cc. Yesterday in physical therapy he was able to ambulate 45'. Review of Systems Review of Systems: All systems reviewed & are unremarkable except as noted in HPI & below Physical Exam Physical Exam: seen in the hallway with [employer]. lumbar dressing C/D/I very uncomfortable strength intact b/l LE Results & Data ([facility]) Vital Signs (Past 12 Hours) Vital Signs Temp Pulse Resp BP Pulse Ox O2 Del Method 02/15/22 08:21 36.3 C L 73 18 119/72 96 Room Air 02/14/22 22:31 37.1 C 86 18 111/72 97 Room Air
[2022-02-15 10:15] LABS: BUN Creatinine Ratio 22.6 (10-20); Calcium 8.7 mg/dl (8.5-10.1); Creatinine Clr Calc Pharmacy 63.8 ml/min; Est GFR (African American) 97.4 ml/min; Est GFR (Non-African American) 84.1 ml/min; Potassium 3.9 mmol/L (3.5-5.1)
--- NOTE | 2022-02-15 12:34 | Hospitalist Progress Note ---
Date of Service February 15, 2022 Assessment & Plan (1) Lumbar radiculopathy: Plan: Attending: Dr. Arvizu: 66yo male with a history of HTN, HLD, DM2, and asplenia presents with a five- week history of low back pain and radicular leg pain. Patient was seen by [facility] a few days ago, and surgery was recommended. Medicine was consulted for perioperative medical management. Lumbar radiculopathy, spinal stenosis - s/p lumbar decompression 02/12 - Pain management: home gabapentin scheduled, 2nd line - oxycodone, 3rd line - dilaudid Of note, patient dilaudid this earlier without adverse effect despite it being listed as an allergy - Suspect acetaminophen not true allergy but reacted d/t it being given concurrently with hydrocodone - Antiemetic regimen: 1st line - zofran; 2nd line - promethazine, 3rd line - metoclopramide - PT/OT eval orders placed. Seen by PT and continued PT recommended. Will see how he progresses and await OT eval - Incentive spirometer use q1h while awake for atelectasis/pna prevention - d/c planning (2) Lumbar spinal stenosis: Plan: As above (3) Controlled diabetes mellitus type II without complication: Plan: - BSG ac and hs - SSI w/ hypoglycemic protocol in place - hold home regimen (although may resume upon discharge) (4) Benign essential hypertension: Plan: - Takes Losartan and Amlodipine - Losartan held perioperatively, can resume at this time - Continue Amlodipine - Continue vitals per protocol (5) Mild intermittent asthma in adult without complication: Plan: - Stable - Continue Albuterol HFA inhaler (JULIO CÉSAR) - Continue scheduled symbicort (LABA/ICS) -Patient with no history of tobacco abuse. He has not had any pulmonary function testing either. (6) Hypercholesterolemia: Plan: - continue atorvastatin -Outpatient management Plan Patient is medically stable aside from his right leg pain. This is being addressed by orthopedics. There was concern for drop in sodium. However sodium improved from 132-135 today. Patient also had a drop in hemoglobin of 14.2 down to 12.2 since admission. His hemoglobin has recovered. Patient does have elevated white blood cell count but is on steroids for pain. Thank you for including us in the care of this patient. The medicine service will sign off at this time. Please feel free to reconsult or call with any specific questions. Admission and Anticipated Discharge Date Admission Date: February 11, 2022 Subjective Attending: Dr. Arvizu Patient seen and examined in room 307. He is having significant pain in his right leg. It is hypersensitive and he is having trouble moving about on the bed. He has no asymetrical edema and he states that both legs and feet are euthermic. He denies chest pain or tightness. No n/v/d. Last BM was yesterday. He did ask for Miralax and ordered prune juice for lunch. No fever or chills. No other acute complaints other than his right lower extremity pain. Review of Systems Review of Systems: A total of 10 systems was reviewed and is negative other than as listed in the HPI Physical Exam Constitutional: No acute distress. Pleasant Eyes: Pupils equal and round Neck: No appreciation of stridor or carotid bruits Respiratory: normal respiratory effort; no respiratory distress Auscultation: lungs clear to auscultation bilaterally and + diminished lung sounds Cardiovascular: Rate/Rhythm: regular rate and regular rhythm Musculoskeletal: Head/Neck/Chest: + abnormal palpation of chest wall Neurologic: A&OX3. Results & Data Results & Data ([facility]) Vital Signs (Past 12 Hours) Vital Signs Temp Pulse Resp BP Pulse Ox O2 Del Method 02/15/22 08:21 36.3 C L 73 18 119/72 96 Room Air Critical Care Results & Data Vital Signs (Past 12 Hours) Vital Signs Temp Pulse Resp BP Pulse Ox O2 Del Method 02/15/22 08:21 36.3 C L 73 18 119/72 96 Room Air Lab & Micro Results (Past 24 Hours) RBC 3.98 M/uL (4.63-6.08) L 02/15/22 WBC 23.01 K/ul (4.8-10.8) H 02/15/22 Hgb 12.4 g/dl (14.0-18.0) L 02/15/22 Hct 36.4 % (40.1-51.0) L 02/15/22 MCV 91.5 fL (80.0-100.0) 02/15/22 MCH 31.2 pg (25.0-34.0) 02/15/22 MCHC 34.1 g/dL (32.0-36.0) 02/15/22 RDW Standard Deviation 47.3 fL (36.4-46.3) H 02/15/22 RDW Coefficient of Variation 14.1 % (11.5-14.5) 02/15/22 Plt Count 428 K/uL (130-400) H 02/15/22 MPV 9.7 fL (9.4-12.4) 02/15/22 Neutrophils (%) (Auto) 74.8 % 02/15/22 Lymphocytes (%) (Auto) 19.6 % 02/15/22 Monocytes # (Auto) 1.10 K/uL (0.24-0.82) H 02/15/22 Eosinophils # (Auto) 0.01 K/uL (0-0.50) 02/15/22 Immature Granulocyte % (Auto) 0.6 % 02/15/22 Neutrophils # (Auto) 17.19 K/uL (1.4-6.5) H 02/15/22 Lymphocytes # (Auto) 4.52 K/uL (1.2-3.4) H 02/15/22 Monocytes # (Auto) 1.10 K/uL (0.24-0.82) H 02/15/22 Eosinophils # (Auto) 0.01 K/uL (0-0.50) 02/15/22 Basophils # (Auto) 0.05 K/uL (0-0.2) 02/15/22 Immature Granulocyte # (Auto) 0.14 K/uL (0.00-0.02) H 02/15 Na 135 mmol/L (136-145) L 02/15/22 K 3.9 mmol/L (3.5-5.1) 02/15/22 Cl 100 mmol/L (98-107) 02/15/22 CO2 26 mmol/L (21-32) 02/15/22 Anion Gap 9 (3-11) 02/15/22 BUN 21 mg/dl (6-23) 02/15/22 Creatinine 0.93 mg/dl (0.6-1.4) 02/15/22 Estimated GFR ( Amer) 97.4 ml/min 02/15/22 Estimated GFR (Non-Af Amer) 84.1 ml/min 02/15/22 BUN/Creatinine Ratio 22.6 (10-20) H 02/15/22 Glu 213 mg/dl (70-99(Fasting)) H 02/15/22 Ca 8.7 mg/dl (8.5-10.1) 02/15/22 Calcium Level 8.7 mg/dl (8.5-10.1) 02/15/22 09:17 I & O Totals 24 Hours 02/14/22 02/15/22 02/16/22 06:59 06:59 06:59 Intake Total 475 / 475 490 / 490 Output Total 915 / 915 1456 / 1456 Balance -440 / -440 -966 / -966 Cumulative 02/11/22 15:36 thru 02/15/22 06:43 Intake Total 6368.75 Output Total 7651 Balance -1282.25 RT Ventilator Mngmt (Last Documented) Ventilator Ordered Settings Respiratory Rate 18 02/15/22 08:21 Ventilator - PT Measurements Respiratory Rate 18 PG Care Time/CCT Total # of Minutes Spent Total Time Spent with Patient: Total time spent is greater than 50% in coordination of care (as documented) at patient's floor/unit and/or counseling patient:20 Coding Level of Care Code 81228 Subseq Hosp Care Lvl 2 Diagnoses Lumbar radiculopathy M54.16 Lumbar spinal stenosis M48.061 Controlled diabetes mellitus type II without complication E11.9 Benign essential hypertension I10 Mild intermittent asthma in adult without complication J45.20 Hypercholesterolemia E78.00
[2022-02-15] MEDS: oxyCODONE HCL IR 5 MG TAB (IMMEDIATE RELEASE) PO PRN ×2 (12:39→18:06)
--- NOTE | 2022-02-15 13:23 | XRay Report ---
XR lumbar spine 2-3V CLINICAL HISTORY: increase right leg pain s/p lumbar fusion COMPARISON STUDY: Lumbar spine fluoroscopic images February 12, 2022. FINDINGS: Note is made of an L3-L4 discectomy with interbody spacer placement. Posterior decompressio n with L2-L4 bilateral pedicle screw fusion is noted. Surgical drain is in place. Hardware is intact. No fracture is identified. Lateral bone graft material. Bowel gas pattern is normal. IMPRESSION: Expected findings following L3-L4 discectomy at L2-L4 posterior decompression and bilate ral pedicle screw fusion. ACT 112: Negative or not required by law. Electronically signed by: Joss Nicholson M.D. 02/15/2022 1:21 PM
--- NOTE | 2022-02-15 13:51 | Pharmacy Report ---
Pharmacy Glycemic Short Note 2 - Date of Service February 15, 2022 - Glycemic Short BSG Results (Last 24 hours): 02/14/22 02/14/22 02/15/22 16:51 21:10 08: Glucose POC Glucose 270 H 170 H 139 H 02/15/22 02/15/22 09:17 11:55 Glucose 213 H POC Glucose 150 H OUTPATIENT ANTIDIABETIC REGIMEN: * Metformin 500 mg PO BID * HbA1c = 8.5% (02/13/22) ASSESSMENT: 02/15: * Patient received total 48 units of insulin yesterday; 15 units basal + 33 units bolus. * BSGs yesterday were [phone] mg/dl. Patient received Dexamethasone 6 mg IV in the morning yesterday which is likely what caused the high BSGs at lunch and dinner in spite of him getting 15 units of basal in the morning. * Fasting BSG was 103 mg/dl yesterday and 139 mg/dl today. Continued with basal Lantus 15 units QAM. * Added NPH insulin 0.2 units/kg with the IV Dex 6 mg today and tightened Novolog parameters further. * IV Dex 6 mg dosing frequency increased to q8h today. Therefore, I added NPH 0.2 units/kg at 1600 (with the Dex administration time) also to prevent further steroid induced hyperglycemia. 02/13: * Gordy received 33 units of insulin postoperatively yesterday (20 units basal + 13 units bolus). BSGs were acceptable: [phone] mg/dL. * Fasting BSG above goal at 182 mg/dL this AM. This is likely steroid driven given IV dexamethasone received intraoperatively yesterday. Patient is ordered Dexamethasone 6 mg IV daily x 3 days starting this morning. Will start basal at 0.2 units/kg to cover steroids. * No changes to Novolog. 02/12: * Mr Nowak is a 66 y/o M with a PMH of T2DM on oral medication who presents with lumbar radiculopathy. * Patient currently NPO and BSGs are well controlled. * Patient scheduled for surgery today. Post Op plan to be determined based upon steroids given. PLAN FOR INPATIENT GLYCEMIC CONTROL: * Hold outpatient oral diabetes medications * Basal insulin: NPH added * Lantus 15 units SC daily * NPH 12 units (0.2 units/kg) SQ BID at 0800 and 1600 to be given with IV Dex 6 mg * Bolus insulin: tightened CF and CR and added 00,04 checks * NovoLog per scale ACHS or Q6hrs while NPO * Goal Range: Low 110 mg/dL - High 140 mg/dL * Correction Factor: 15 mg/dL/unit * Nutritional / Prandial insulin per carb ratio of 1 unit per 5 grams CHO consumed
[2022-02-15] MEDS: INSULIN HUMAN NPH SC SCH (16:30)
[2022-02-15] MEDS: DOCUSATE SODIUM/SENNA 50/8.6MG TAB PO SCH (21:04)
[2022-02-15] MEDS: ATORVASTATIN 40 MG TAB PO SCH (21:04)
[2022-02-15] MEDS: LORazepam 0.5 MG TAB PO PRN (21:07)
[2022-02-15] MEDS: MELATONIN 3 MG TAB PO PRN (21:07)
[2022-02-16] MEDS: dexAMETHasone 6 MG in SYRINGE 0 ML IV SCH ×4 (00:19→23:43)
[2022-02-16] MEDS: INSULIN ASPART PER UNIT SC SCH ×6 (00:27→21:29)
[2022-02-16] MEDS: GABAPENTIN 300 MG CAP PO SCH ×4 (00:45→19:47)
[2022-02-16] MEDS: LOSARTAN POTASSIUM 50 MG TAB PO SCH (07:39)
[2022-02-16] MEDS: FLUTICASONE/VILANTEROL 200/25MCG 14 PUFFS/INHALER INH SCH (07:39)
[2022-02-16] MEDS: amLODIPine BESYLATE 5 MG TAB PO SCH (07:40)
[2022-02-16] MEDS: INSULIN HUMAN NPH SC SCH ×2 (08:38→17:44)
--- NOTE | 2022-02-16 08:56 | Pharmacy Report ---
Pharmacy Glycemic Short Note 2 - Date of Service February 16, 2022 - Glycemic Short BSG Results (Last 24 hours): 02/15/22 02/15/22 02/15/22 09:17 11:55 16:43 Glucose 213 H POC Glucose 150 H 221 H 02/15/22 02/16/22 02/16/22 20:38 00:09 04:15 Glucose POC Glucose 195 H 121 H 193 H 02/16/22 08:10 Glucose POC Glucose 155 H OUTPATIENT ANTIDIABETIC REGIMEN: * Metformin 500 mg PO BID * HbA1c = 8.5% (02/13/22) ASSESSMENT: 02/16: * Gordy received 83 units of insulin yesterday (39 units basal + 44 units bolus). BSGs were: [phone] mg/dL. * Overnight check was 193 mg/dL this AM. Fasting BSG this AM was 155 mg/dL. No change to NPH dose today. Will increase Lantus by 30% as fasting BSG continues to increase. * Patient continues on Dexamethasone 6 mg IV every 8 hours today. Okay with NPH dosing for now but would prefer to utilize either Lantus or NPH rather than both. * No changes to Novolog today. 02/15: * Patient received total 48 units of insulin yesterday; 15 units basal + 33 units bolus. * BSGs yesterday were 140-302-134-170 mg/dl. Patient received Dexamethasone 6 mg IV in the morning yesterday which is likely what caused the high BSGs at lunch and dinner in spite of him getting 15 units of basal in the morning. * Fasting BSG was 103 mg/dl yesterday and 139 mg/dl today. Continued with basal Lantus 15 units QAM. * Added NPH insulin 0.2 units/kg with the IV Dex 6 mg today and tightened Novolog parameters further. * IV Dex 6 mg dosing frequency increased to q8h today. Therefore, I added NPH 0.2 units/kg at 1600 (with the Dex administration time) also to prevent further steroid induced hyperglycemia. PLAN FOR INPATIENT GLYCEMIC CONTROL: * Hold outpatient oral diabetes medications * Basal insulin * Lantus 20 units SC daily * NPH 12 units (0.2 units/kg) SC BID at 0800 and 1600 to be given with IV Dex 6 mg * Bolus insulin * NovoLog per scale ACHS or Q6hrs while NPO * Goal Range: Low 110 mg/dL - High 140 mg/dL * Correction Factor: 15 mg/dL/unit * Nutritional / Prandial insulin per carb ratio of 1 unit per 5 grams CHO consumed
[2022-02-16] MEDS ORDERED: LANTUS PER UNIT CHARGE SQ SCH ×2 (09:00)
[2022-02-16] MEDS: oxyCODONE HCL IR 5 MG TAB (IMMEDIATE RELEASE) PO PRN ×2 (11:01→19:47)
--- NOTE | 2022-02-16 14:13 | Orthopedic Progress Note ---
Date of Service February 16, 2022 Assessment & Plan (1) Lumbar radiculopathy: Plan: At this time we will continue physical therapy. We will continue the Neurontin 300 mg p.o. 3 times daily and IV steroids. We will begin weaning these throughout the weekend if he continues to progress hopefully discharge home in the next few days. Admission and Anticipated Discharge Date Admission Date: February 11, 2022 Subjective Patient's back pain is improving. His right leg pain is improving but still struggling with radiculopathy in the right anterior thigh. Physical Exam Physical Exam: On exam he is in the chair at the bedside. He appears more comfortable. He has good strength testing. Results & Data ([facility]) Vital Signs (Past 12 Hours) Vital Signs Temp Pulse Pulse Resp BP BP Pulse Ox 02/16/22 13:07 36.4 C L 79 87 18 134/83 127/84 99 02/16/22 11:23 36.4 C L 87 18 134/83 99 02/16/22 08:00 02/16/22 08:00 36.6 C 71 16 127/84 96 O2 Del Method 02/16/22 13:07 02/16/22 11:23 Room Air 02/16/22 08:00 Room Air 02/16/22 08:00 Room Air
[2022-02-16] MEDS: DOCUSATE SODIUM/SENNA 50/8.6MG TAB PO SCH (19:47)
[2022-02-16] MEDS: ATORVASTATIN 40 MG TAB PO SCH (19:47)
[2022-02-16] MEDS: MELATONIN 3 MG TAB PO PRN (23:43)
[2022-02-17] MEDS: oxyCODONE HCL IR 5 MG TAB (IMMEDIATE RELEASE) PO PRN ×2 (07:46→19:52)
[2022-02-17] MEDS: dexAMETHasone 6 MG in SYRINGE 0 ML IV SCH (07:54)
[2022-02-17] MEDS: LOSARTAN POTASSIUM 50 MG TAB PO SCH (08:52)
[2022-02-17] MEDS: amLODIPine BESYLATE 5 MG TAB PO SCH (08:52)
[2022-02-17] MEDS: GABAPENTIN 300 MG CAP PO SCH ×2 (08:52→14:02)
[2022-02-17] MEDS: FLUTICASONE/VILANTEROL 200/25MCG 14 PUFFS/INHALER INH SCH (08:54)
[2022-02-17] MEDS: LANTUS PER UNIT CHARGE SQ SCH (08:56)
[2022-02-17] MEDS: INSULIN ASPART PER UNIT SC SCH ×4 (08:57→22:07)
--- NOTE | 2022-02-17 09:51 | Orthopedic Progress Note ---
Date of Service February 17, 2022 Assessment & Plan (1) Lumbar radiculopathy: Plan: At this time but I will begin weaning his Decadron to daily dosing only. I will obtain an ultrasound of the right lower extremity rule out DVT. We will continue physical therapy as tolerated. Hopefully he will be ready to go home in the next day or so. Admission and Anticipated Discharge Date Admission Date: February 11, 2022 Subjective Patient's feels that his symptoms are steadily improving but struggling quite a bit with right leg pain particularly in the thigh and calf. Left lower extremity is asymptomatic. Physical Exam Physical Exam: On exam he is in the chair at the bedside. Does appear comfortable. Reasonable plantar flexion dorsiflexion strength bilaterally. Results & Data ([facility]) Vital Signs (Past 12 Hours) Vital Signs Temp Pulse Resp BP Pulse Ox O2 Del Method 02/17/22 07:22 36.6 C 69 16 136/81 96 Room Air 02/16/22 22:35 36.8 C 72 14 146/81 H 95 Room Air
--- NOTE | 2022-02-17 11:47 | Ultrasound Report ---
ULTRASOUND RIGHT LOWER EXTREMITY VENOUS CLINICAL HISTORY: Right leg pain. COMPARISON STUDY: No priors. TECHNIQUE: Real-time, grayscale, and color Doppler sonography of the deep veins of the right lower ex tremity was performed from the inguinal crease to the calf. Compression and augmentation were utilize d. FINDINGS: There is deep venous thrombosis identified in the calf within one of the posterior tibial v eins and one of the peroneal veins. The remaining calf vessels are patent. There is no sonographic ev idence of above-knee deep venous thrombosis identified in the right lower extremity. The common femor al, superficial femoral, and popliteal veins are patent and normally compressible. The greater saphen ous vein and the profunda femoris vein at the junction with the common femoral vein are clear. IMPRESSION: Deep venous thrombosis in the right calf as above ACT 112: Negative or not required by law. Electronically signed by: Gonzalo Mary M.D. 02/17/2022 11:46 AM
--- NOTE | 2022-02-17 12:59 | Hospitalist Progress Note ---
Date of Service February 17, 2022 Assessment & Plan (1) Lumbar radiculopathy: Plan: Lumbar radiculopathy, spinal stenosis - s/p lumbar decompression 02/12 - Pain management per primary team - PT/OT. - Incentive spirometer use q1h while awake for atelectasis/pna prevention - Plan to return home. (2) Right leg DVT: Plan: Distal RLE DVT found on 02/17. Thought to be contributing to his pain. Given risk factors (multiple vessels, inpatient status, likely limited mobility in coming weeks), recommend treatment. Discussed with Dr. Johnson who felt Lovenox optimal first choice. Did not feel we needed to trial heparin gtt as he is 5 days out from surgery. - Lovenox 60 mg SQ Q12h (will go slightly lower dose to reduce bleeding risk, simplify outpatient regimen (60 mg syringes available), and CKD likely making it last slightly longer in system) - Could also consider a DOAC on discharge if no signs of bleeding - Patient expresses interest in using a pill instead of injections. (3) Lumbar spinal stenosis: Plan: As above (4) Controlled diabetes mellitus type II without complication: Plan: - BSG ac and hs - SSI w/ hypoglycemic protocol in place - hold home regimen (although may resume upon discharge) (5) Benign essential hypertension: Plan: BP 135/80 today. - Continue Losartan and Amlodipine (6) Mild intermittent asthma in adult without complication: Plan: - Stable - Continue Albuterol HFA inhaler (JULIO CÉSAR) - Continue scheduled symbicort (LABA/ICS) - Patient with no history of tobacco abuse. He has not had any pulmonary function testing either. (7) Hypercholesterolemia: Plan: - continue atorvastatin - Outpatient management Plan Hospitalist team will follow along. Admission and Anticipated Discharge Date Admission Date: February 11, 2022 Subjective With right calf pain. Reports no fevers/chills, chest pain, shortness of breath, abdominal pain, nausea, or vomiting. Physical Exam Constitutional: WD/WN, vitals as above Eyes: EOM intact bilaterally; no conjunctival abnormality ENMT: external ear and nose normal, oropharynx normal Neck: trachea midline, no thyromegaly normal visual inspection Respiratory: normal respiratory effort, lungs clear to auscultation no respiratory distress Cardiovascular: RRR, no murmur, no edema Gastrointestinal (Abdomen): Inspection/Auscultation: abdomen normal to inspection; abdomen not distended Musculoskeletal: no cyanosis or clubbing, extremities motor strength 5/5 Right calf tender to palpation, even light touch. Skin: no rashes, warm and dry Neurologic: moves all extremities and awake Psychiatric: Orientation: alert, oriented to person and cooperative Results & Data Results & Data ([facility]) Vital Signs (Past 12 Hours) Vital Signs Temp Pulse Resp BP Pulse Ox O2 Del Method 02/17/22 07:22 36.6 C 69 16 136/81 96 Room Air PG Care Time/CCT Total # of Minutes Spent Total Time Spent with Patient: Total time spent is greater than 50% in coordination of care (as documented) at patient's floor/unit and/or counseling patient: Coding Level of Care Code 17263 Subseq Hosp Care Lvl 3 Diagnoses Lumbar radiculopathy M54.16 Right leg DVT I82.401 Lumbar spinal stenosis M48.061 Controlled diabetes mellitus type II without complication E11.9 Benign essential hypertension I10 Mild intermittent asthma in adult without complication J45.20 Hypercholesterolemia E78.00
[2022-02-17] MEDS: INSULIN HUMAN NPH SC SCH (18:38)
--- NOTE | 2022-02-17 19:38 | XRay Report ---
RIGHT FEMUR 3 VIEWS CLINICAL HISTORY: Right leg pain. FINDINGS: AP, frog-leg, and crosstable lateral views of the right femur are obtained. No prior studie s are available for comparison at the time of dictation. The skeletal structures appear osteopenic. T here is no radiographic evidence of right femoral fracture. There is no radiographic evidence of avas cular necrosis of the right femoral head. The visualized right hemipelvis appears intact. The right h ip and knee joints appear maintained. The overlying soft tissues are within normal limits. Surgical c lips project over the scrotum. Phleboliths are noted in the pelvis. IMPRESSION: No acute bony abnormality is identified. Electronically signed by: Gonzalo Mary M.D. 02/17/2022 7:37 PM
[2022-02-17] MEDS: ATORVASTATIN 40 MG TAB PO SCH (19:50)
[2022-02-17] MEDS: DOCUSATE SODIUM/SENNA 50/8.6MG TAB PO SCH (19:50)
[2022-02-17] MEDS: ENOXAPARIN INJ 60 MG/0.6 ML SYR SQ SCH (19:51)
[2022-02-17] MEDS: GABAPENTIN 400 MG CAP PO SCH (19:51)
[2022-02-17] MEDS: MELATONIN 3 MG TAB PO PRN (22:07)
[2022-02-18 08:08] LABS: Hematocrit (blood only) 38.2 % (40.1-51.0); Hemoglobin 12.9 g/dl (14.0-18.0); Mean Corpuscular Hemoglobin 31.2 pg (25.0-34.0); Mean Corpuscular Hgb Conc 33.8 g/dL (32.0-36.0); Mean Corpuscular Volume 92.3 fL (80.0-100.0); Platelet Count 384 K/uL (130-400); RDW Standard Deviation 47.2 fL (36.4-46.3); Red Blood Count 4.14 M/uL (4.63-6.08); White Blood Count 19.87 K/ul (4.8-10.8)
[2022-02-18] MEDS: ENOXAPARIN INJ 60 MG/0.6 ML SYR SQ SCH ×2 (08:17→20:02)
[2022-02-18] MEDS: amLODIPine BESYLATE 5 MG TAB PO SCH (08:17)
[2022-02-18] MEDS: LOSARTAN POTASSIUM 50 MG TAB PO SCH (08:17)
[2022-02-18] MEDS: GABAPENTIN 400 MG CAP PO SCH ×3 (08:19→20:00)
[2022-02-18] MEDS: dexAMETHasone 6 MG in SYRINGE 0 ML IV SCH (08:19)
[2022-02-18] MEDS: FLUTICASONE/VILANTEROL 200/25MCG 14 PUFFS/INHALER INH SCH (08:21)
[2022-02-18 08:53] LABS: BUN Creatinine Ratio 43.8 (10-20); Calcium 8.4 mg/dl (8.5-10.1); Creatinine Clr Calc Pharmacy 66.7 ml/min; Est GFR (African American) 101.8 ml/min; Est GFR (Non-African American) 87.9 ml/min; Magnesium 2.1 mg/dl (1.7-2.4); Potassium 4.1 mmol/L (3.5-5.1)
[2022-02-18] MEDS: INSULIN ASPART PER UNIT SC SCH ×4 (09:04→21:49)
[2022-02-18] MEDS: LANTUS PER UNIT CHARGE SQ SCH (09:05)
--- NOTE | 2022-02-18 10:21 | Orthopedic Progress Note ---
Date of Service February 18, 2022 Assessment & Plan (1) Lumbar radiculopathy: Plan: This time I would like to observe him for another day. We initiated anticoagulation therapy yesterday 1 to ensure there is no issues with continued bleeding in the postoperative region. So far he is tolerating it well. Most likely able to discharge home tomorrow. Patient will require a hospital bed. Patient has a condition that requires positioning of the body in ways not feasi ble in an ordinary bed in order to alleviate his pain and function. Admission and Anticipated Discharge Date Admission Date: February 11, 2022 Subjective Patient's leg pain is improving. He is ambulating well. Physical Exam 2 Physical Exam: On exam is in the chair at the bedside. Still exhibiting hyperesthesia to the right lower extremity. Strength is intact. Results & Data ([facility]) Vital Signs (Past 12 Hours) Vital Signs Temp Pulse Resp BP Pulse Ox O2 Del Method 02/18/22 07:23 36.7 C 67 16 130/83 97 Room Air
--- NOTE | 2022-02-18 11:03 | Pharmacy Report ---
Pharmacy Glycemic Short Note 2 - Date of Service February 18, 2022 - Glycemic Short BSG Results (Last 24 hours): 02/17/22 02/17/22 02/17/22 11:47 16:58 20:45 Glucose POC Glucose 281 H 149 H 154 H 02/18/22 02/18/22 07:45 08:02 Glucose 155 H POC Glucose 144 H OUTPATIENT ANTIDIABETIC REGIMEN: * Metformin 500 mg PO BID * HbA1c = 8.5% (02/13/22) ASSESSMENT: 02/18/22 * Patient's BSGs yesterday were [phone] mg/dL. * Dexamethasone was 6 mg IV q8 on 02/16/22 and changed to 6 mg IV daily on 02/17/22. So patient received 1 dose of dexamethasone 6 mg IV on 02/17/22. * Patient received 108 units of insulin yesterday (30 units of basal and 78 units of bolus). * Patient was transitioned to Lantus 30 units yesterday. Will continue this today as fasting BSG was reasonable today. Fasting today is significantly lower than yesterday but this is attributable to the fact that dexamethasone was reduced from q8 to daily. * Continue tightened Novolog as BSGs stable yesterday. 02/16: * Gordy received 83 units of insulin yesterday (39 units basal + 44 units bolus). BSGs were: [phone] mg/dL. * Overnight check was 193 mg/dL this AM. Fasting BSG this AM was 155 mg/dL. No change to NPH dose today. Will increase Lantus by 30% as fasting BSG continues to increase. * Patient continues on Dexamethasone 6 mg IV every 8 hours today. Okay with NPH dosing for now but would prefer to utilize either Lantus or NPH rather than both. * No changes to Novolog today. 02/15: * Patient received total 48 units of insulin yesterday; 15 units basal + 33 units bolus. * BSGs yesterday were [phone] mg/dl. Patient received Dexamethasone 6 mg IV in the morning yesterday which is likely what caused the high BSGs at lunch and dinner in spite of him getting 15 units of basal in the morning. * Fasting BSG was 103 mg/dl yesterday and 139 mg/dl today. Continued with basal Lantus 15 units QAM. * Added NPH insulin 0.2 units/kg with the IV Dex 6 mg today and tightened Novolog parameters further. * IV Dex 6 mg dosing frequency increased to q8h today. Therefore, I added NPH 0.2 units/kg at 1600 (with the Dex administration time) also to prevent further steroid induced hyperglycemia. PLAN FOR INPATIENT GLYCEMIC CONTROL: * Hold outpatient oral diabetes medications * Basal insulin * Lantus 30 units SC daily * Bolus insulin * NovoLog per scale ACHS or Q6hrs while NPO * Goal Range: Low 110 mg/dL - High 140 mg/dL * Correction Factor: 12 mg/dL/unit * Nutritional / Prandial insulin per carb ratio of 1 unit per 3 grams CHO consumed
[2022-02-18] MEDS: oxyCODONE HCL IR 5 MG TAB (IMMEDIATE RELEASE) PO PRN (11:43)
--- NOTE | 2022-02-18 17:44 | Hospitalist Progress Note ---
Date of Service February 18, 2022 Assessment & Plan (1) Lumbar radiculopathy: Plan: Lumbar radiculopathy, spinal stenosis - s/p lumbar decompression 02/12 - Pain management per primary team - PT/OT. - Incentive spirometer use q1h while awake for atelectasis/pna prevention - Plan to return home. (2) Right leg DVT: Plan: Distal RLE DVT found on 02/17. Thought to be contributing to his pain. Given risk factors (multiple vessels, inpatient status, likely limited mobility in coming weeks), recommend treatment. Discussed with Dr. Johnson who felt Lovenox optimal first choice. Did not feel we needed to trial heparin gtt as he is 5 days out from surgery. - Lovenox 60 mg SQ Q12h (will go slightly lower dose to reduce bleeding risk, simplify outpatient regimen (60 mg syringes available), and CKD likely making it last slightly longer in system) - Could also consider a DOAC on discharge if no signs of bleeding - Patient expresses interest in using a pill instead of injections. Pt has leg pain out of porpotion to the xray changes, this maybe neuropathic pain will try voltaren gel, and attmept to impove sleep, (3) Lumbar spinal stenosis: Plan: As above (4) Controlled diabetes mellitus type II without complication: Plan: - BSG ac and hs - SSI w/ hypoglycemic protocol in place - hold home regimen (although may resume upon discharge) (5) Benign essential hypertension: Plan: BP 135/80 today. - Continue Losartan and Amlodipine (6) Mild intermittent asthma in adult without complication: Plan: - Stable - Continue Albuterol HFA inhaler (JULIO CÉSAR) - Continue scheduled symbicort (LABA/ICS) - Patient with no history of tobacco abuse. He has not had any pulmonary function testing either. (7) Hypercholesterolemia: Plan: - continue atorvastatin - Outpatient management Admission and Anticipated Discharge Date Admission Date: February 11, 2022 Subjective pt still with some pain, mostly knee and thigh, no abnormal skin or bruises Review of Systems Review of Systems: Mild distress and fatigue no headache, no visual changes no speech or swallowing issues no chest pain, pressure or palpitations no shortness of breath, cough or wheezes no abdominal pain, nausea or vomiting, diarrhea or constipation no dysuria, hematuria or frequency right leg and knee pain no back pain, CVA tenderness or radicular pain no bruising, bleeding or rashes no focal signs of weakness or numbness or altered sensation no complaints of anxiety or depression.. Physical Exam Physical Exam: The patient appeared stable Vital signs as documented. Lungs are clear to auscultation and appear unlabored Cardiac exam, Rhythm is regular.. No murmurs, rubs or gallops. Abdominal exam reveals normal bowel sounds, soft non tender, no masses Extremities are nonedematous and both pedal pulses are normal. the right leg is very tender to touch but not abnormal in appearance Neurologic exam is alert and oriented, no focal loss of strength or sensation Skin is without bruises or rashes Psychologically is without concerns for anxiety or depression. Results & Data Results & Data ([facility]) Vital Signs (Past 12 Hours) Vital Signs Temp Pulse Resp BP Pulse Ox O2 Del Method 02/18/22 14:29 97.9 F 82 16 117/68 98 Room Air 02/18/22 07:23 98.1 F 67 16 130/83 97 Room Air PG Care Time/CCT Total # of Minutes Spent Total Time Spent with Patient: Total time spent is greater than 50% in coordination of care (as documented) at patient's floor/unit and/or counseling patient: Coding Level of Care Code 81457 Subseq Hosp Care Lvl 2 Diagnoses Lumbar radiculopathy M54.16 Right leg DVT I82.401 Lumbar spinal stenosis M48.061 Controlled diabetes mellitus type II without complication E11.9 Benign essential hypertension I10 Mild intermittent asthma in adult without complication J45.20 Hypercholesterolemia E78.00
[2022-02-18] MEDS: DOCUSATE SODIUM/SENNA 50/8.6MG TAB PO SCH (20:01)
[2022-02-18] MEDS: ATORVASTATIN 40 MG TAB PO SCH (20:01)
[2022-02-18] MEDS: ACETAMINOPHEN 500 MG TAB PO SCH (20:01)
[2022-02-18] MEDS: DICLOFENAC SOD 1% GEL 100 GM TUBE EXT SCH (20:05)
[2022-02-18] MEDS ORDERED: QUEtiapine FUMARATE 25 MG TABLET PO SCH (21:00)
[2022-02-18] MEDS: MELATONIN 3 MG TAB PO PRN (21:50)
[2022-02-19] MEDS: ACETAMINOPHEN 500 MG TAB PO SCH (04:59)
--- NOTE | 2022-02-19 07:45 | Hospitalist Progress Note ---
Date of Service February 19, 2022 Assessment & Plan (1) Lumbar radiculopathy: Plan: Lumbar radiculopathy, spinal stenosis POD #7 s/p lumbar decompression 02/[address] Johnson Hgb 14.2--> 12.9, acute blood loss anemia from surgery/dilutional from IVF Pain management/bowel regimen per primary service PT/OT consulted Continue incentive spirometer q1h for pulmonary toilet --> lung exam clear, 96% on RA Lovenox SQ currently for RLL DVT as below --> messaged Dr johnson about possibly using Xarelto at discharge Plans to return home, likely later today if remains stable (2) Right leg DVT: Plan: Distal RLE DVT found on 02/17. Thought to be contributing to his pain. Given risk factors (multiple vessels, inpatient status, likely limited mobility in coming weeks), recommend treatment. Discussed with Dr. Johnson who felt Lovenox optimal first choice. Did not feel we needed to trial heparin gtt as he is 5 days out from surgery. - Lovenox 60 mg SQ Q12h (will go slightly lower dose to reduce bleeding risk, simplify outpatient regimen (60 mg syringes available), and CKD likely making it last slightly longer in system) Could also consider a DOAC on discharge if no signs of bleeding - Patient expresses interest in using a pill instead of injections. * Messaged Dr Johnson for such -- consider Xarelto 15mg BID x 21 days, 20mg once daily after for minimum 3 months however decision made for Lovenox SQ at discharge * Asked CM to arrange for home health given such Pt w/ leg pain out of proportion to xray changes, ?neuropathic pain Improved with added voltaren gel -- can continue at discharge, rx added to d/c instructions Also checking B12/ferritin labs with AM labs to rule out other causes (B12 was 311 in 2019, also on metformin therapy 500mg BID)-- replacement if needed B12 resulted low normal at 282 and given age, started 1000mcg daily and continued at discharge (3) Lumbar spinal stenosis: Plan: As above (4) Controlled diabetes mellitus type II without complication: Plan: BSG ac and hs - SSI w/ hypoglycemic protocol in place - hold home regimen (although may resume upon discharge) BSGs acceptable (5) Benign essential hypertension: Plan: BP 120/74, kidney function stable - Continue Losartan and Amlodipine (6) Mild intermittent asthma in adult without complication: Plan: - Stable - Continue Albuterol HFA inhaler (JULIO CÉSAR) - Continue scheduled symbicort (LABA/ICS) - Patient with no history of tobacco abuse. He has not had any pulmonary function testing either. (7) Hypercholesterolemia: Plan: - continue atorvastatin - Outpatient management Plan Thank you for allowing hospitalist service to participate in the care of Mr Nowak. D/c on Lovenox SQ x 3 months minimum for RLE DVT. CM to arrange home health B12 supplementation and topical voltaren also sent at discharge Admission and Anticipated Discharge Date Admission Date: February 11, 2022 Subjective Patient evaluated this morning. Doing well. Eating/drinking/moving his bowels. No chest pain, shortness of breath, fevers, abdominal pain or nausea. Patient hopeful for oral NOAC at discharge rather than the Lovenox. Discussed will message Dr Johnson but ultimate decision up to primary service. Tingling and pain to his RLE is improved as Lovenox therapy in place and states he does have improvement with the voltaren gel, which can be continued. Also discussed checking B12 with AM labs and could continue PO supplementation at discharge but prior labs in 2019 low normal and on metformin for his DM. Questions/concerns addressed at this time. Review of Systems Review of Systems: All systems reviewed & are unremarkable except as noted in HPI & below Physical Exam Physical Exam: General: WN/WD male sitting up in bed, NAD HEENT: head normocephalic, atraumatic, mmm, trachea midline without deviation Resp: CTAB, no w/c/r, on room air CV: RRR, no m/r/g, no edema GI: +BS, soft, nontender : no dasilva MSK/Neuro: moves all extremities, no focal deficits, RLE tender to touch (much less by report, less calf tenderness), no LLE tenderness, strength equal bilaterally. dressing to lumbar spine c/d/i Skin: warm, dry Psych: AOx3, pleasant and cooperative Results & Data Results & Data ([facility]) Vital Signs (Past 12 Hours) Vital Signs Temp Pulse Resp BP Pulse Ox O2 Del Method 02/19/22 07:21 36.7 C 72 16 120/74 96 Room Air 02/18/22 21:52 36.6 C 68 14 116/72 95 Room Air Laboratory Results 02/19/22 02/19/22 02/19/22 Range/Units 11:57 08:52 08:52 WBC (4.8-10.8) K/ul RBC (4.63-6.08) M/uL Hgb (14.0-18.0) g/dl Hct (40.1-51.0) % MCV (80.0-100.0) fL MCH (25.0-34.0) pg MCHC (32.0-36.0) g/dL RDW Std Deviation (36.4-46.3) fL RDW Coeff of Eloy (11.5-14.5) % Plt Count (130-400) K/uL MPV (9.4-12.4) fL Absolute Nucleated RBC (0-0) K/uL Nucleated RBC % (auto) % Sodium 136 (136-145) mmol/L Potassium 3.5 (3.5-5.1) mmol/L Chloride 104 (98-107) mmol/L Carbon Dioxide 25 (21-32) mmol/L Anion Gap 7 (3-11) BUN 31 H (6-23) mg/dl Creatinine 0.95 (0.6-1.4) mg/dl Est Cr Clr Drug Dosing 62.5 ml/min Est GFR ( Amer) 94.9 ml/min Est GFR (Non-Af Amer) 81.9 ml/min BUN/Creatinine Ratio 32.6 H (10-20) Glucose 164 H (70-99(Fasting)) mg/dl POC Glucose 136 H (70-99) mg/dl Calcium 8.3 L (8.5-10.1) mg/dl Iron 175 (35-175) mcg/dl TIBC 288 (250-450) mcg/dl Unsaturated IBC 113 L (155-355) mcg/dl Transferrin % Sat 61 H (20-50) % Ferritin 239.5 (8-388) ng/ml Vitamin B12 282 (180-914) pg/ml 02/19/22 02/19/22 02/18/22 Range/Units 08:52 08:09 20:36 WBC 21.29 H (4.8-10.8) K/ul RBC 4.08 L (4.63-6.08) M/uL Hgb 12.5 L (14.0-18.0) g/dl Hct 36.6 L (40.1-51.0) % MCV 89.7 (80.0-100.0) fL MCH 30.6 (25.0-34.0) pg MCHC 34.2 (32.0-36.0) g/dL RDW Std Deviation 45.2 (36.4-46.3) fL RDW Coeff of Eloy 14.0 (11.5-14.5) % Plt Count 406 H (130-400) K/uL MPV 9.6 (9.4-12.4) fL Absolute Nucleated RBC 0.03 H (0-0) K/uL Nucleated RBC % (auto) 0.1 % Sodium (136-145) mmol/L Potassium (3.5-5.1) mmol/L Chloride (98-107) mmol/L Carbon Dioxide (21-32) mmol/L Anion Gap (3-11) BUN (6-23) mg/dl Creatinine (0.6-1.4) mg/dl Est Cr Clr Drug Dosing ml/min Est GFR ( Amer) ml/min Est GFR (Non-Af Amer) ml/min BUN/Creatinine Ratio (10-20) Glucose (70-99(Fasting)) mg/dl POC Glucose 96 244 H (70-99) mg/dl Calcium (8.5-10.1) mg/dl Iron (35-175) mcg/dl TIBC (250-450) mcg/dl Unsaturated IBC (155-355) mcg/dl Transferrin % Sat (20-50) % Ferritin (8-388) ng/ml Vitamin B12 (180-914) pg/ml 02/18/22 Range/Units 17:03 WBC (4.8-10.8) K/ul RBC (4.63-6.08) M/uL Hgb (14.0-18.0) g/dl Hct (40.1-51.0) % MCV (80.0-100.0) fL MCH (25.0-34.0) pg MCHC (32.0-36.0) g/dL RDW Std Deviation (36.4-46.3) fL RDW Coeff of Eloy (11.5-14.5) % Plt Count (130-400) K/uL MPV (9.4-12.4) fL Absolute Nucleated RBC (0-0) K/uL Nucleated RBC % (auto) % Sodium (136-145) mmol/L Potassium (3.5-5.1) mmol/L Chloride (98-107) mmol/L Carbon Dioxide (21-32) mmol/L Anion Gap (3-11) BUN (6-23) mg/dl Creatinine (0.6-1.4) mg/dl Est Cr Clr Drug Dosing ml/min Est GFR ( Amer) ml/min Est GFR (Non-Af Amer) ml/min BUN/Creatinine Ratio (10-20) Glucose (70-99(Fasting)) mg/dl POC Glucose 173 H (70-99) mg/dl Calcium (8.5-10.1) mg/dl Iron (35-175) mcg/dl TIBC (250-450) mcg/dl Unsaturated IBC (155-355) mcg/dl Transferrin % Sat (20-50) % Ferritin (8-388) ng/ml Vitamin B12 (180-914) pg/ml PG Care Time/CCT Total # of Minutes Spent Total Time Spent with Patient: Total time spent is greater than 50% in coordination of care (as documented) at patient's floor/unit and/or counseling patient: Coding Level of Care Code 38324 Subseq Hosp Care Lvl 3 Diagnoses Lumbar radiculopathy M54.16 Right leg DVT I82.401 Lumbar spinal stenosis M48.061 Controlled diabetes mellitus type II without complication E11.9 Benign essential hypertension I10 Mild intermittent asthma in adult without complication J45.20 Hypercholesterolemia E78.00
[2022-02-19] MEDS: LOSARTAN POTASSIUM 50 MG TAB PO SCH (08:53)
[2022-02-19] MEDS: GABAPENTIN 400 MG CAP PO SCH ×2 (08:54→14:03)
[2022-02-19] MEDS: amLODIPine BESYLATE 5 MG TAB PO SCH (08:54)
[2022-02-19] MEDS: ENOXAPARIN INJ 60 MG/0.6 ML SYR SQ SCH (08:55)
[2022-02-19] MEDS: DICLOFENAC SOD 1% GEL 100 GM TUBE EXT SCH (08:55)
[2022-02-19] MEDS: dexAMETHasone 6 MG in SYRINGE 0 ML IV SCH (08:56)
[2022-02-19] MEDS: FLUTICASONE/VILANTEROL 200/25MCG 14 PUFFS/INHALER INH SCH (08:57)
[2022-02-19] MEDS ORDERED: LANTUS PER UNIT CHARGE SQ SCH (09:00)
[2022-02-19] MEDS: INSULIN ASPART PER UNIT SC SCH ×2 (09:03→12:34)
[2022-02-19 09:29] LABS: Hematocrit (blood only) 36.6 % (40.1-51.0); Hemoglobin 12.5 g/dl (14.0-18.0); Mean Corpuscular Hemoglobin 30.6 pg (25.0-34.0); Mean Corpuscular Hgb Conc 34.2 g/dL (32.0-36.0); Mean Corpuscular Volume 89.7 fL (80.0-100.0); Mean Platelet Volume 9.6 fL (9.4-12.4); Nucleated RBC # (auto) 0.03 K/uL (0-0); Nucleated RBC % (auto) 0.1 %; Platelet Count 406 K/uL (130-400); RDW Standard Deviation 45.2 fL (36.4-46.3); Red Blood Count 4.08 M/uL (4.63-6.08); White Blood Count 21.29 K/ul (4.8-10.8)
[2022-02-19 09:56] LABS: BUN Creatinine Ratio 32.6 (10-20); Calcium 8.3 mg/dl (8.5-10.1); Creatinine Clr Calc Pharmacy 62.5 ml/min; Est GFR (African American) 94.9 ml/min; Est GFR (Non-African American) 81.9 ml/min; Potassium 3.5 mmol/L (3.5-5.1)
[2022-02-19 10:11] LABS: Ferritin 239.5 ng/ml (8-388)
[2022-02-19] MEDS ORDERED: CYANOCOBALAMIN (B-12) 500 MCG TABLET PO SCH (11:15)
--- NOTE | 2022-02-19 12:33 | Discharge Summary ---
Date of Service February 19, 2022 Admission HPI Per Admitting Provider This is a 66-year-old male who presents with a marked decline in status over the past several weeks. He describes pain going lumbosacral junction rating the right buttock right anterior thigh and groin. Extends below the knee. It is severe in nature. He has had a course of interventional pain management and injections without resolution. He is currently on a fentanyl patch p.o. oxycodone and gabapentin providing little to no improvement in his symptom complex. Over the past several days he is noted progressive strength deficit. He now uses a walker to ambulate. He cannot ascend or descend steps using right lower extremity secondary to quadriceps weakness. Left lower extremity is asymptomatic. Principal Diagnosis Lumbar disc herniation with stenosis Discharge Data Allergies Allergy/AdvReac Type Severity Reaction Status Date / Time acetaminophen Allergy Unknown rash, itchy Verified 02/11/22 21:17 hydrocodone Allergy Unknown rash, itchy Verified 02/11/22 21:17 Sulfa (Sulfonamide Allergy Unknown "sulfa eye Verified 02/11/22 21:17 Antibiotics) products-blinds me" tramadol Allergy Unknown itch Verified 02/11/22 21:17 Opioid Analgesics Allergy Unknown ITCHY Uncoded 02/11/22 21:17 Consultations 02/11/22 16:56 ED Decision to Admit Stat 02/11/22 21:06 Consult Internal Medicine Routine 02/17/22 12:10 Consult Hospitalist Routine Procedures Performed Operation Date: 02/12/22 10:20 Actual Procedures p Decompression Fusion L2-L4, with Spinal cord monitoring(Not Applicable) - Deo Johnson DO Ordered Studies 02/12/22 13:00 FL lumbar spine 2-3V Routine 02/17/22 09:49 US venous doppler LE RT Urgent Hospital Course (1) Lumbar spinal stenosis: Patient was admitted with severe radiculopathy affecting the right leg. He underwent surgery Tolerated well was taken orthopedic for. Postoperatively he did require some additional medication for continued hyperesthesia. He was also discovered to have a DVT in the right lower extremity. This was treated medically. His pain was steadily improving he is ambulating well tolerating physical therapy and subsequent discharge home. Discharge orders instructions from the chart for further review. Total Time Total Time Spent Total Time Spent (In Minutes): 20 minutes Discharge Plan Discharge Items Patient Disposition: Home - Self-Care Reason For Visit: LUMBAR RADICULOPATHY Discharge Diagnosis: Lumbar disc herniation with radiculopathy Activity: As commented below Non-emergency contact: Primary Care Provider Call non-emergency contact if: you have any medication questions Follow-up/Referrals: Gonzalo Wright MD [Primary Care Provider] - Diet: Regular Addtl Attending Provider Instructions: ACTIVITY RECOMMENDATIONS: SELF CARE INSTRUCTIONS AFTER THORACIC/LUMBAR FUSIONS 1. You may walk to your tolerance. It is good exercise for your legs and back. Expect some back and intermittent leg aches and pains. 2. You may perform "counter-top" level activities (make a sandwich, lino with a project, etc.). 3. No bending or lifting of more than 10 pounds or back twisting of any nature (roll like a log when turning in bed). 4. You may ride in a car for 20-30 minutes at a time. No driving until after your first visit with your doctor. 5. Frequent changes of position and restricting sitting to 30 minutes at a time will help limit the amount of back spasms and stiffness you may experience. 6. You may discontinue the use of ambulatory aids (cane, crutches, etc.) once your strength and confidence allow. 7. You may captain waiter the shower and let water strike your incision when you arrive home at least once daily. Do not take a tub bath, sit in a hot tub or go into a swimming pool until after your first recheck in the office. SPECIAL CARE INSTRUCTIONS: VERY IMPORTANT TO READ AND REVIEW A. Your surgical incision has been closed with a cosmetic suture under the skin that will dissolve in about 6 weeks. In 14 days, you can use a pair of clean scissors and cut the suture that is left outside of the skin at the ends of your incision. 1. The small skin tapes can be removed 7 days after surgery if they have not fallen off by that point. 2. You may keep the wound open to air as much as possible to promote healing after post-op day number 5 unless told otherwise by your doctor. 3. If you think the wound looks like it is becoming infected (redness or worsening drainage) and/or you are experiencing fever, chill or worsening back pain and muscle spasms, contact the office so that we may evaluate you as soon as possible. B. Complications are uncommon, but please contact us if you have any signs or symptoms of: 1. wound infection (fever higher than 102.5 degrees F, redness, separation of wound, drainage, or increasing pain from the incision) 2. blood clots in legs (pain, swelling, redness and warmth in legs) 3. urinary tract infection (fever higher than 102.5 degrees F, burning upon urination or increased frequency of urination) 4. nerve problems (inability to walk on your toes or heels, numbness, loss of bowel or bladder control) 5. any other symptoms that concern you C. Please call the office at if you have any concerns or questions about your operation or recovery. D. No smoking! Smoking drastically decreases the chance of a solid fusion. E. Do not take any anti-inflammatory medications (Indocin, Advil, Motrin, Aspirin, Naprosyn, etc.) as these may inhibit the chance of a solid fusion. Tylenol is okay to take for pain. MANAGING PAIN AFTER SPINAL SURGERY 1. Narcotic medication is intended for short-term use and will be provided for surgical pain. Surgical pain usually lasts for a period of 4-6 weeks. Narcotic medication includes Percocet, Vicodin, Darvocet, Tylenol #3 or Lortab. 2. Longer-term pain is more appropriately treated with non-narcotic medication such as Tylenol ES. 3. Muscle spasm is not appropriately treated with narcotics. Muscle relaxers such as Soma, Flexeril or Skelaxin can be used along with Tylenol ES. 4. Remember that we all live with some "aches and pains". This is not unusual or uncommon after an injury or as we get older. a. Back pain is expected and may include muscle spasms for 4 to 6 weeks after surgery. The pain should gradually improve. If the pain worsens for no apparent reason, please contact the office. b. Intermittent leg pain may also be experienced and should not be concerned about unless it worsens for no apparent reason. If so, please contact the office. 5. We will provide appropriate medication within the normal guidelines of their prescribed use. We will also be very cautious and aware of potential abuse and extended duration of patients' medication needs. a. Pain medications are for your comfort and to assist with sleep and rest so that the tissue can heal. They are not provided in order to return to normal activity and should not be used through the day. To do so or worsening pain at night can result from ongoing tissue damage and development of tolerance to the prescribed medicine. 6. Please allow 2-3 days to process refills. Prescriptions will not be mailed but must be picked up at the office. FOLLOW UP VISIT: Keep your scheduled follow-up appointment. Any questions, please call the office at . Addtl Relocation Counselor Provider Instructions: Your B12 was found to be borderline low. This can also contribute to balance issues as well as neuropathy in your legs. You should continue 1000mcg daily supplementation. You can also continue topical voltaren up to four times a day as needed for pain as well. Please follow up with your PCP about your B12 levels as well as follow up regarding your blood clot in the leg. Pending Studies at Discharge: No Stand-Alone Forms: My [facility] [employer], Smoking Cessation Medications and DC Order Prescriptions: New oxycodone 5 mg tablet 5 mg PO Q6H PRN (Reason: pain, severe) Qty: 30 0RF gabapentin 300 mg Capsule 300 mg PO TID Qty: 90 2RF diclofenac sodium [Voltaren Arthritis Pain] 1 % gel 2 g topical QID Qty: 100 0RF Rx Instructions: apply to single elbow, wrist or hand; for hand includes palm/fingers/back of hand cyanocobalamin (vitamin B-12) 1,000 mcg capsule 1,000 mcg PO DAILY Qty: 30 0RF enoxaparin 60 mg/0.6 mL Syringe 60 mg subcut Q12H Qty: 30 0RF Continued metformin 500 mg tablet 500 mg PO BID Qty: 180 3RF (DME) East MaxV test strips See Rx Instructions .Route .MEDSUPPLY Qty: 100 3RF Rx Instructions: As directed (DME) Easy Max lancets, check daily. E11.9 See Rx Instructions .Route .MEDSUPPLY Qty: 100 3RF Rx Instructions: As directed (DME) blood-glucose meter Kit See Rx Instructions .ROUTE .MEDSUPPLY Qty: 1 0RF Rx Instructions: EasyMax V2. Check once daily. E11.9 fentanyl 50 mcg/hr patch 72 hour 1 patch transdermal Q72H Qty: 10 0RF Rx Instructions: patch was removed today in ER. WAS NOT REEPLACED oxycodone 5 mg tablet See Rx Instructions PO QID PRN (Reason: severe pain) Qty: 240 0RF Rx Instructions: 1-2 tab orally four times daily PRN; gabapentin 300 mg capsule 300 mg PO TID Qty: 90 5RF budesonide-formoterol 160-4.5 mcg/actuation HFA aerosol inhaler 2 inh inhalation BID Qty: 10.2 11RF albuterol sulfate 90 mcg/actuation HFA aerosol inhaler 2 inh inhalation Q4H PRN (Reason: shortness of breath or wheezing) Qty: 8.5 5RF polyethylene glycol 3350 [Miralax] 17 gram/dose powder 17 g PO DAILY PRN (Reason: Constipation) methocarbamol 500 mg tablet 500 mg PO QID PRN (Reason: muscle spasm) Qty: 120 1RF naloxone 4 mg/actuation spray,non-aerosol 4 mg intranasal Q3M PRN (Reason: opioid overdose) Qty: 2 0RF Rx Instructions: spray 1 dose into ONE nostril; alternate nostrils w each dose until help arrives atorvastatin 40 mg tablet 40 mg PO QPM Rx Instructions: Take with evening meal. amlodipine 2.5 mg tablet 2.5 mg PO QAM losartan 100 mg tablet 100 mg PO QAM Rx Instructions: For blood pressure instead of lisinopril Discontinued prednisone 10 mg tablet 10 mg PO .COMPLEX 12 Days Qty: 30 0RF Rx Instructions: 4 for 3 days, 3 for 3 days, 2 for 3 days, 1 for 3 days then off.; Discharge Orders: Discharge Order (Routine); Ordered 02/19/22 Ordered By: Deo Hein/Other Patient Handouts: Managing Type 2 Diabetes Admission Data Admit Date/Time: 02/11/22 17:11 Attending Provider: Deo Johnson Admit Provider: Deo Johnson Primary Care Provider: Gonzalo Wright Other Providers: Shane Arvizu ; Deo Johnson ; Tone Obrien ; Anders Goodwin Other Interventions: Discharge Summary Assessment (RN) Last Done: 02/16/22 13:07
[2022-02-19] MEDS: oxyCODONE HCL IR 5 MG TAB (IMMEDIATE RELEASE) PO PRN (14:03)
== END 2022-02-19 15:14 | disposition home health service (06) | DRG 454 ==
LOC: ED 15:36 → EDINP 17:11 → 3E 21:45